=== PATIENT | male | born 1940 | race Caucasian/White ===

== ENCOUNTER 2019-04-26 12:37 | Outpatient (CLI) | payer MEDICARE, OTHER ==
[~2019-04-26] VITALS: Ht 165.1 cm; Wt 72.6 kg
[2019-04-26 15:07] VITALS: BP 132/71
== END 2019-04-26 14:37 | disposition home or self-care (01) ==
LOC: PAN 12:37
DX: R10.9 Unspecified abdominal pain (principal)
CPT/HCPCS: G0463

== ENCOUNTER 2019-04-30 08:40 | Day surgery (SDC) | payer MEDICARE, OTHER ==
[~2019-04-30] VITALS: Ht 162.6 cm; Wt 72.6 kg
[2019-04-30] VITALS (8 sets, daily range): BP systolic 113–179; BP diastolic 68–85
--- NOTE | 2019-04-30 09:34 | Pre-Procedure Note/Attestation ---
Pre-Procedure Note/Attestation Complete Prior to Procedure Planned Procedure: not applicable Procedure Narrative: esophagogastroduodenoscopy and colonoscopy Indications for Procedure Pre-Operative Diagnosis: chronic GERD, screening Attestation I attest that I discussed the nature of the procedure; its benefits; risks and complications; and alternatives (and the risks and benefits of such alternatives ), prior to the procedure, with the patient (or the patient's legal kiosk sales representative). I attest that, if there was a reasonable possibility of needing a blood transfusion, the patient (or the patient's legal kiosk sales representative) was given the [facility] standardized written summary, pursuant to the Brayden Agapito Blood Safety Act ([place] Health and Safety Code # 1645, as amended). I attest that I re-evaluated the patient just prior to the surgery and that there has been no change in the patient's H&P, except as documented below: Oh Casas MD Apr 30, 2019 09:34
--- NOTE | 2019-04-30 09:35 | Short Stay Surgery H&P ---
History of Present Illness History of Present Illness Chief Complaint screening colon HPI Mily Welch is a 78 year old male who was admitted on for Screening Patient History Allergies: Coded Allergies: No Known Allergies (Unverified , 04/26/19) PAST MEDICAL HISTORY: (1) GERD (gastroesophageal reflux disease) (2) Diverticulosis (3) BPH (benign prostatic hyperplasia) Review of Systems Cardiovascular: Reports: no symptoms Respiratory: Reports: no symptoms Skeletal: Reports: no symptoms Gastrointestinal: Reports: gastro esophageal reflux disease Neurologic: Reports: no symptoms Endocrine: Reports: no symptoms Hematologic: Reports: no symptoms Physical Exam Skin: normal HENT: normal Heart: normal Lungs: normal Abdomen: normal Extremities: normal Plan Plan of Care esophagogastroduodenoscopy and colonoscopy Attestation Are the patient's medical conditions optimized for surgery? Attestation Response: yes Oh Casas MD Apr 30, 2019 09:35
[2019-04-30] MEDS ORDERED: SYSTANE 0.3-0.1 EAC2 OP (11:13)
[2019-04-30] MEDS ORDERED: [UNRECOGNIZED DRUG - REMARK] PO (11:14)
[2019-04-30] MEDS ORDERED: cholesterol pill PO (11:15)
[2019-04-30] MEDS ORDERED: [UNRECOGNIZED DRUG - REMARK] PO (11:16)
[2019-04-30] MEDS ORDERED: [UNRECOGNIZED DRUG - REMARK] PO (11:16)
[2019-04-30] MEDS ORDERED: LR 1000ml ONE (12:00)
[2019-04-30] MEDS ORDERED: Lidocaine 1% MPF 10mg/ml 5ml ONE (12:00)
[2019-04-30] MEDS ORDERED: Propofol 200mg/20ml IV ONE (12:00)
--- NOTE | 2019-04-30 12:30 | Endoscopy Procedure Note ---
Endoscopy Procedure Note General Indication for Procedure: screening colon, GERD Procedures Performed: EGD, colonoscopy Operative Findings/Diagnosis: gastritis, diverticulosis Specimen: yes Pt Tolerated Procedure Well: Yes Estimated Blood Loss: none Anesthesia Anesthesiologist: katharine Anesthesia: MAC Inserted Devices Implant(s) used?: No Quality Quality of Bowel Preparation: Good Did scope reach the cecum?: Yes Was there any complications?: No GI Core Measures 50 yrs or older w/o bx or poly: No 10yrs. F/U recommended: Yes If not recommended, why?: Above average risk 18 years or older w/prev. colo: No Oh Casas MD Apr 30, 2019 12:30
--- NOTE | 2019-04-30 12:31 | Immediate Post-Op Evaluation ---
Immediate Post-Op Evalulation Immediate Post-Op Evalulation Procedure: EGD/Colonoscopy Date of Evaluation: Apr 30, 2019 Time of Evaluation: 11:20 IV Fluids: 500 Blood Pressure Systolic: 119 Blood Pressure Diastolic: 62 Pulse Rate: 62 Respiratory Rate: 14 O2 Sat by Pulse Oximetry: 98 Temperature (Fahrenheit): 97.0 Nausea: No Vomiting: No Patient Status: awake, reacts, patent Hydration Status: adequate Drug: none Shelley Howard CRNA Apr 30, 2019 12:31
--- NOTE | 2019-04-30 12:33 | Anethesia Preoperative Eval ---
Anesthesia Pre-op PMH/ROS General Date of Evaluation: Apr 30, 2019 Time of Evaluation: 12:20 Anesthesiologist: Lee ASA Score: ASA 2 Mallampati Score Class I : Soft palate, uvula, fauces, pillars visible Class II: Soft palate, uvula, fauces visible Class III: Soft palate, base of uvula visible Class IV: Only hard plate visible Mallampati Classification: Class II Surgeon: Yessenia Diagnosis: screening Surgical Procedure: EGD/Colonoscopy Anesthesia History: none Family History: no anesthesia problems Allergies: Coded Allergies: No Known Allergies (Unverified , 04/26/19) Medications: see eMAR Patient NPO?: Yes NPO Date: Apr 30, 2019 NPO Time: 00:01 Past Medical History Cardiovascular: Reports: HTN Gastrointestinal/Genitourinary: Reports: GERD, other - BPH; Denies: CRI, ESRD Neurologic/Psychiatric: Denies: dementia, CVA, depression/anxiety, TIA, other Endocrine: Denies: DM, hypothyroidism, steroids, other HEENT: Denies: cataract (L), cataract (R), glaucoma, [place] (L), [place] (R), other Hematology/Immune: Denies: anemia, DVT, bleeding disorder, other Anesthesia Pre-op Phys. Exam Physician Exam Last Vital Signs Date Time Temp Pulse Resp B/P (MAP) Pulse Ox O2 Delivery O2 Flow Rate FiO2 04/30/19 11:22 97.6 59 18 177/77 96 Room Air Constitutional: NAD Neurologic: CN 2-12 intact Cardiovascular: RRR Gastrointestinal: S/NT/ND Airway Exam Mallampati Score: Class II Neck: normal TMD: 2fb ROM: full Dentures: upper; no lower Anesthesia Pre-op A/P Studies Pre-op Studies: EKG - SR Risk Assessment & Plan Assessment: denies cp/sob Plan: mac Pre-Antibiotics Drug: none Shelley Howard CRNA Apr 30, 2019 12:33
--- NOTE | 2019-04-30 13:13 | 48 Hour Post Anesthesia Eval ---
Post Anesthesia Evaluation Procedure: EGD/Colonoscopy Date of Evaluation: Apr 30, 2019 Time of Evaluation: 13:13 Blood Pressure Systolic: 163 0: 79 Pulse Rate: 51 Respiratory Rate: 15 O2 Sat by Pulse Oximetry: 98 Nausea: No Vomiting: No Hydration Status: adequate Cardiopulmonary Status: stable Follow-up Care/Observations: na Post-Anesthesia Complications: none Follow-up care needed: N/A Shelley Howard CRNA Apr 30, 2019 13:13
--- NOTE | 2019-04-30 16:15 | Procedure Note ---
DATE OF PROCEDURE: 04/30/2019 SURGEON: Oh Casas M.D. PROCEDURE: Upper endoscopy with biopsy and colonoscopy. ANESTHESIA: Per Shelley EDGE. INSTRUMENT: Olympus adult flexible upper endoscope and colonoscope. REASON FOR PROCEDURE: The procedure, risks, benefits, and possible consequences, including hemorrhage, aspiration, perforation and infection, and alternative treatments, were explained to the patient/legal guardian by Dr. Oh Casas and the patient/legal guardian understood and accepted these risks. INDICATION: Screening colonoscopy, chronic GERD. DESCRIPTION OF PROCEDURE: After informed consent was obtained and the patient was adequately sedated, flexible upper endoscope was advanced from mouth into the second portion of the duodenum and retroflexion was performed in the stomach. The patient has evidence of diffuse gastritis. Random biopsy from antrum and body was obtained to rule out H. pylori infection. Otherwise, the rest of the upper endoscopic examination grossly within normal limits. At this time, the upper endoscope was retrieved. The patient was turned over for colonoscopy. First, rectal exam was performed, which was positive for internal hemorrhoids. Then the scope was advanced from the rectum into the cecum documented by appendix orifice, ileocecal valve, and right upper quadrant palpation. Quality of prep was good The patient had evidence of diverticulosis in the left colon. No obvious polyp was seen. Retroflexion of rectum showed evidence of internal hemorrhoids. SUMMARY OF FINDINGS: 1. Gastritis, status post biopsy. 2. Diverticulosis in the left colon. 3. Internal hemorrhoids. RECOMMENDATIONS: Follow up biopsy results and treat accordingly. Oh Casas M.D. DR: PITO JOB#: [id number] CC:
--- NOTE | 2019-05-01 21:30 | Consultation ---
DATE OF CONSULTATION: 04/30/2019 GASTROENTEROLOGY CONSULTATION CONSULTING PHYSICIAN: Oh Casas M.D. REFERRING PHYSICIAN: Oh Miles M.D. CHIEF COMPLAINT: Referral for rectal pain, rectal leakage, constipation, abdominal pain, and GERD. PAST MEDICAL HISTORY: 1. Hypertension. 2. Hyperglycemia. 3. BPH. 4. GERD. 5. Diverticulosis. PAST SURGICAL HISTORY: Knee surgeries. MEDICATIONS: Please see medication reconciliation list. ALLERGIES: No known drug allergies. FAMILY HISTORY: No family history of GI malignancies. SOCIAL HISTORY: The patient denies any tobacco, alcohol, or drug abuse. REVIEW OF SYSTEMS: Positive for abdominal pain, GERD, constipation, and rectal leakage. PHYSICAL EXAMINATION: VITAL SIGNS: Temperature 98.2, blood pressure is 132/71, pulse is 45, and respirations 20. HEENT: Normocephalic and atraumatic. Sclerae anicteric. NECK: Supple. No evidence of obvious lymphadenopathy. CARDIOVASCULAR: Regular rate and rhythm. Plus S1 and S2. No obvious murmur. LUNGS: Clear to auscultation bilaterally. ABDOMEN: Positive bowel sounds. Soft and nontender. No rebound. No guarding. No peritoneal sign. EXTREMITIES: No cyanosis. No clubbing. No edema. ASSESSMENT AND PLAN: 1. Rectal leakage. 2. Constipation. 3. Abdominal pain. 4. GERD. PLAN: Plan to do endoscopy and colonoscopy given the patient for many years. The patient agrees to the procedure. Risks and benefits were explained to him and he understood. We are going to put the patient on low-sodium diet, and we will re-evaluate him after the colonoscopy. Oh Casas M.D. DR: PEDRO JOB#: [id number] CC:
== END 2019-04-30 13:25 | disposition home or self-care (01) ==
LOC: GAS 08:40
DX: Z12.11 Encounter for screening for malignant neoplasm of colon (principal); K21.9 Gastro-esophageal reflux disease without esophagitis; K29.70 Gastritis, unspecified, without bleeding; K57.90 Diverticulosis of intestine, part unspecified, without perforation or abscess without bleeding; K64.8 Other hemorrhoids; I10 Essential (primary) hypertension; K59.00 Constipation, unspecified
CPT/HCPCS: 43239; 93005; G0121; J2704; J7120; 94003; 94150